=== PATIENT | female | born 1975 | race African-American/Black ===

== ENCOUNTER 2018-06-17 14:38 | Observation (INO) | payer OTHER ==
[2018-06-17 14:44] VITALS: BMI 31.9
[2018-06-17] MEDS ORDERED: KETOROLAC TROMETHAMINE 30 MG/1 ML VIAL IVPUSH ONE (15:57)
[2018-06-17] MEDS ORDERED: KETOROLAC TROMETHAMINE 30 MG/1 ML VIAL ONE (16:11)
[2018-06-17 16:18] LABS: EOS % 1.9 % (0-4.5); HEMATOCRIT 38.4 % (32.4-45.2); HEMOGLOBIN 13.2 GM/dL (10.7-15.3); LYMPH % 35.9 % (8-40); MCH 29.8 pg (25.7-33.7); MCHC 34.3 g/dl (32.0-36.0); MEAN CELL VOLUME 86.8 fl (80-96); MONO % 6.8 % (3.8-10.2); NEUT % 54.4 % (42.8-82.8); PLATELET COUNT 345 K/MM3 (134-434); RBC 4.43 M/mm3 (3.60-5.2); RDW 14.1 % (11.6-15.6)
--- NOTE | 2018-06-17 16:20 | PDOC ---
Rapid Medical Evaluation Chief Complaint: Chest Pain Time Seen by Provider: 06/17/18 15:56 Medical Evaluation: Allergies Allergy/AdvReac Type Severity Reaction Status Date / Time No Known Allergies Allergy Verified 06/17/18 14:41 Vital Signs Temp Pulse Resp BP Pulse Ox 97.7 F 80 18 173/106 H 100 06/17/18 14:43 06/17/18 14:43 06/17/18 14:43 06/17/18 14:43 06/17/18 14:43 06/17/18 16:20 pt c/o: rt sided cp x 1 week worse w/ movement and deep breathing,. pt states aching pain is deep in " the chest" Pt on brief exam: no reprod cp, no lle edema, elevated BP Pt ordered for: labs, cxr, ua, ekg Pt to proceed to the ED Discharge Disposition - Diagnosis Chest pain - Discharge Dispostion Last Admission D/C Date: 12/04/10 - Referrals - Patient Instructions - Post Discharge Activity
--- NOTE | 2018-06-17 16:34 | PDOC ---
History of Present Illness - General Chief Complaint: Chest Pain Stated Complaint: CHEST PAIN, SOB Time Seen by Provider: 06/17/18 15:56 - History of Present Illness Initial Comments: 06/17/18 16:33 42 year old woman with intermittent R chest pain worse with movement of the R arm ongoing for 1 week and worse of 2 days. pressure like rated 8/10, resolved at bedside non radiating 06/17/18 17:08 Past History - Past Medical History Allergies/Adverse Reactions: Allergies Allergy/AdvReac Type Severity Reaction Status Date / Time No Known Allergies Allergy Verified 06/17/18 14:41 Home Medications: Ambulatory Orders NK [No Known Home Medication] 06/17/18 COPD: No - Suicide/Smoking/Psychosocial Hx Smoking Status: No Smoking History: Never smoked Number of Cigarettes Smoked Daily: 0 *Physical Exam - Vital Signs Last Vital Signs Temp Pulse Resp BP Pulse Ox 97.7 F 80 18 173/106 H 100 06/17/18 14:43 06/17/18 14:43 06/17/18 14:43 06/17/18 14:43 06/17/18 14:43 Moderate Sedation - Procedure Monitoring Vital Signs: Procedure Monitoring Vital Signs Temperature 97.7 F 06/17/18 14:43 Pulse Rate 80 06/17/18 14:43 Respiratory Rate 18 06/17/18 14:43 Blood Pressure 173/106 H 06/17/18 14:43 O2 Sat by Pulse Oximetry (%) 100 06/17/18 14:43 ED Treatment Course - LABORATORY CBC & Chemistry Diagram: 06/17/18 16:05 06/17/18 16:55 Medical Decision Making - Medical Decision Making 06/17/18 18:33 ED Course: CBC unremarkable cmp pending EKDL new t wave inversions in V4-V6, however last ekg 8 years ago CXR: unremarkable 06/17/18 18:56 K 2.5 IV and PO repletion 2gm Mg trop .06 will repeat in 3 hours. 06/17/18 19:04 ua: unremarkable *DC/Admit/Observation/Transfer Diagnosis at time of Disposition: Chest pain - Discharge Dispostion Decision to Admit order: Yes - Referrals - Patient Instructions - Post Discharge Activity
--- NOTE | 2018-06-17 17:10 | PDOC ---
Attending Attestation - HPI HPI: 06/17/18 17:51 The patient is a 42 year old female, with no significant PMH, who presents to the emergency department with 2 days of intermittent right sided chest pain. The patient states she only experiences the right sided chest pain when she moves her right arm. The patient states she has not had the chest pain for the past 2 hours. The patient states she has experienced the right sided chest pain in the past which lasted for a couple of days and resolved on its own. The patient denies any recent injuries or trauma. Denies any recent travel or immobilizations. Denies any sick contacts. Denies any cough or hemoptysis. Denies control use. The patient denies palpitations, shortness of breath, headache and dizziness. Denies fever, chills, nausea, vomit, diarrhea and constipation. Denies dysuria, frequency, urgency and hematuria. Allergies: NKA Documentation prepared by Max Fabian, acting as phlebotomist medical lab assistant for Africa Coe MD. <Max Fabian - Last Filed: 06/17/18 17:51> - Resident Resident Name: Anna Flores - ED Attending Attestation I have performed the following: I have examined & evaluated the patient, The case was reviewed & discussed with the resident, I agree w/resident's findings & plan, Exceptions are as noted - Physicial Exam PE: 06/17/18 17:10 GENERAL: The patient is in no acute distress. HEAD: Normal EYES: PERRLA, EOMI, sclera anicteric, conjunctiva clear. ENT: Ears normal, nares patent, oropharynx clear without exudates. Moist mucous membranes. NECK: Normal range of motion, supple LUNGS: Breath sounds equal, clear to auscultation bilaterally. No wheezes, and no crackles. HEART:Regular rate and rhythm, normal S1 and S2 without murmur, rub or gallop. ABDOMEN: Soft, nontender, normoactive bowel sounds. No guarding, no rebound. EXTREMITIES: Normal range of motion, no edema. NEUROLOGICAL: Cranial nerves II through XII grossly intact. Normal speech. No focal neurological deficits. SKIN: Warm, Dry, normal turgor, no rashes or lesions noted. 06/17/18 17:56 - Medical Decision Making 06/17/18 17:57 42 yo F presenting with a complaint of chest pain Present for 2 days Low risk wells, PERC negative Pt has no risk factors for ACS Will do: Labs EKG CXR Repeat trop possible d/c Laboratory Tests 06/17/18 16:05 WBC 5.0 Hgb 13.2 Hct 38.4 Plt Count 345 D 06/17/18 18:42 Laboratory Tests 06/17/18 16:55 Sodium 145 Chloride 104 Carbon Dioxide 32 BUN 14 Creatinine 0.9 Troponin I 0.06 H Potassium - 2.5 06/17/18 18:[address] on observation <Africa Coe - Last Filed: 06/17/18 18:47>
[2018-06-17 18:34] LABS: ALBUMIN 4.1 g/dl (3.4-5.0); ALK PHOS 65 U/L (45-117); ANION GAP 8 MMOL/L (8-16); BILIRUBIN,TOTAL 1.3 mg/dL (0.2-1); BLOOD UREA NITROGEN 14 mg/dL (7-18); CALCIUM 8.8 mg/dL (8.5-10.1); CHLORIDE 104 mmol/L (98-107); CO2 32 mmol/L (21-32); CREATININE 0.9 mg/dL (0.55-1.3); GLUCOSE,RANDOM 78 mg/dL (74-106); SGOT/AST 19 U/L (15-37); SGPT/ALT 21 U/L (13-61); SODIUM 145 mmol/L (136-145); TOT PROT 7.3 g/dl (6.4-8.2)
[2018-06-17 18:41] LABS: URINE APPEARANCE CLEAR; URINE BILIRUBIN NEGATIVE (<2.0 mg/dL); URINE COLOR YELLOW; URINE GLUCOSE (UA) NEGATIVE (NEGATIVE); URINE KETONE NEGATIVE (NEGATIVE); URINE LEUK ESTERASE NEGATIVE (NEGATIVE); URINE NITRITE NEGATIVE (NEGATIVE); URINE PROTEIN NEGATIVE (NEGATIVE); URINE UROBILINOGEN NEGATIVE mg/dL (0.2-1.0)
[2018-06-17 18:43] LABS: POTASSIUM 2.5 mmol/L (3.5-5.1)
[2018-06-17 18:43] LABS: HCG,QUALITATIVE URINE Negative
[2018-06-17] MEDS ORDERED: POTASSIUM CHLORIDE TABS 20 MEQ TABLET.ER (FP) PO ONE (18:43)
[2018-06-17] MEDS ORDERED: POTASSIUM CHLORIDE TABS 10 MEQ TABLET.ER (FP) ONE (19:13)
[2018-06-17] MEDS ORDERED: KCL 10 MEQ IVPB 10 MEQ/100 ML INFUS.BAG IVPB ONE ×2 (19:13→22:22)
[2018-06-17] MEDS ORDERED: MAGNESIUM SULF 50% (8.12 MEQ/2 ML-1 GM VIAL) IVPB ONE (19:18)
[2018-06-17] MEDS: KCL 10 MEQ IVPB 10 MEQ/100 ML INFUS.BAG IVPB SCH ×3 (19:25→22:28)
[2018-06-17] MEDS ORDERED: ASPIRIN 325 MG ENTERIC COATED TABLET (FP) PO ONE (19:38)
[2018-06-17] MEDS ORDERED: metoPROLOL SUCCINATE 25 MG TAB.SR.24H (FP) PO ONE (19:38)
[2018-06-17] MEDS ORDERED: ENOXAPARIN NA (PORCINE) 100 MG/1 ML DISP.SYRIN SQ ONE ×2 (19:38→19:55)
--- NOTE | 2018-06-17 19:49 | PDOC ---
*Physical Exam - Vital Signs Last Vital Signs Temp Pulse Resp BP Pulse Ox 98.1 F 69 18 160/98 98 06/17/18 18:03 06/17/18 18:03 06/17/18 18:03 06/17/18 18:03 06/17/18 18:03 ED Treatment Course - LABORATORY CBC & Chemistry Diagram: 06/17/18 16:05 06/18/18 01:39 - ADDITIONAL ORDERS Additional order review: Laboratory Results 06/17/18 06/17/18 06/17/18 18:19 16:55 16:05 Sodium 145 Cancelled Potassium 2.5 L* Cancelled Chloride 104 Cancelled Carbon Dioxide 32 Cancelled Anion Gap 8 Cancelled BUN 14 Cancelled Creatinine 0.9 Cancelled Creat Clearance w eGFR > 60 Cancelled Random Glucose 78 Cancelled Calcium 8.8 Cancelled Magnesium Cancelled Total Bilirubin 1.3 H Cancelled AST 19 Cancelled ALT 21 Cancelled Alkaline Phosphatase 65 Cancelled Creatine Kinase Cancelled Troponin I 0.06 H Cancelled Total Protein 7.3 Cancelled Albumin 4.1 Cancelled TSH 0.62 Cancelled Urine Color Yellow Urine Appearance Clear Urine pH 6.0 Ur Specific [place] 1.019 Urine Protein Negative Urine Glucose (UA) Negative Urine Ketones Negative Urine Blood Negative Urine Nitrite Negative Urine Bilirubin Negative Urine Urobilinogen Negative Ur Leukocyte Esterase Negative Urine HCG, Qual Negative 06/17/18 16:05 RBC 4.43 MCV 86.8 MCHC 34.3 RDW 14.1 MPV 8.0 Neutrophils % 54.4 D Lymphocytes % 35.9 D Monocytes % 6.8 Eosinophils % 1.9 Basophils % 1.0 D - Medications Given in the ED: ED Medications Discontinued Medications Generic Name Dose Route Start Last Admin Trade Name Freq PRN Reason Stop Dose Admin Ketorolac Tromethamine 30 mg 06/17/18 15:57 06/17/18 16:39 Toradol Injection - IVPUSH 06/17/18 15:58 30 mg ONCE ONE Administration Potassium Chloride 40 meq 06/17/18 18:43 06/17/18 19:25 K-Dur - PO 06/17/18 18:44 40 meq ONCE ONE Administration Medical Decision Making - Medical Decision Making 06/17/18 19:48 Pt signed out to me; she has a + trop and chest pain that is ongoing; We will treat with asa, and metoprolol and lovenox (as BUN/Cr are ok) and she will be admitted to the tele unit. She will have a full cardiac enzyme test with the next blood draw. Hospitalist will be notified. 06/18/18 04:14 2nd trop and CPK are normal; pt's original K+ was low at 2.5. She was treated with K+ as well as Mg+, now 3.0 Pt is admitted to the hospitalist for tele unit admission. *DC/Admit/Observation/Transfer Diagnosis at time of Disposition: Chest pain - Referrals - Patient Instructions - Post Discharge Activity
[2018-06-17] MEDS ORDERED: ASPIRIN 325 MG TABLET ONE (19:55)
[2018-06-17] MEDS ORDERED: MAGNESIUM 1GM/D5W - 1 GM/100 ML IVPB IVPB ONE (20:36)
--- NOTE | 2018-06-17 21:12 | HP ---
CHIEF COMPLAINT:Right sided chest pain PCP:Dr. Harrison HISTORY OF PRESENT ILLNESS: Rebecca Bowden is a 42 yr old F, no significant past medical history, pt presented to ED with right sided pressure pain, worsening x 1 week, pt reports pain is usually in the morning when waking, up pain subsides throughout the day, denies left sided chest pain, c/o SOB on exertion that has been going on for some time , pt seen by PCP in [place], was given medication for BP (pt does not recall name) did not return to PCP for follow up. Currently denies chest pain, headache, dizziness. ER course was notable for: (1)K+ 2.5 (2)BP 180/97 (3)EKG new t wave inversions in V4-V6 Recent Travel: PAST MEDICAL HISTORY:no significant medical hx PAST SURGICAL HISTORY:none Social History: Smoking:denies Alcohol:denies Drugs: denies Family History: Allergies No Known Allergies Allergy (Verified 06/17/18 14:41) HOME MEDICATIONS: Home Medications Medication Instructions Recorded NK [No Known Home Medication] 06/17/18 REVIEW OF SYSTEMS CONSTITUTIONAL: Absent: fever, chills, diaphoresis, generalized weakness, malaise, loss of appetite, weight change HEENT: Absent: rhinorrhea, nasal congestion, throat pain, throat swelling, difficulty swallowing, mouth swelling, ear pain, eye pain, visual changes CARDIOVASCULAR: + right sided chest pain, pressure like pain, +SOB on exertion Absent: , syncope, palpitations, irregular heart rate, lightheadedness, peripheral edema RESPIRATORY: Absent: cough, shortness of breath, dyspnea with exertion, orthopnea, wheezing, stridor, hemoptysis GASTROINTESTINAL: Absent: abdominal pain, abdominal distension, nausea, vomiting, diarrhea, constipation, melena, hematochezia GENITOURINARY: Absent: dysuria, frequency, urgency, hesitancy, hematuria, flank pain, genital pain MUSCULOSKELETAL: Absent: myalgia, arthralgia, joint swelling, back pain, neck pain SKIN: Absent: rash, itching, pallor HEMATOLOGIC/IMMUNOLOGIC: Absent: easy bleeding, easy bruising, lymphadenopathy, frequent infections ENDOCRINE: Absent: unexplained weight gain, unexplained weight loss, heat intolerance, cold intolerance NEUROLOGIC: Absent: headache, focal weakness or paresthesias, dizziness, unsteady gait, seizure, mental status changes, bladder or bowel incontinence PSYCHIATRIC: Absent: anxiety, depression, suicidal or homicidal ideation, hallucinations. PHYSICAL EXAMINATION Vital Signs - 24 hr 06/17/18 06/17/18 06/17/18 14:43 18:03 19:59 Temperature 97.7 F 98.1 F 98.3 F Pulse Rate 80 Pulse Rate [ 69 73 Right Radial] Respiratory 18 18 17 Rate Blood Pressure 173/106 H Blood Pressure 160/98 180/97 H [Left Arm] O2 Sat by Pulse 100 98 100 Oximetry (%) GENERAL: Awake, alert, and fully oriented, in no acute distress. HEAD: Normal with no signs of trauma. EYES: Pupils equal, round and reactive to light, extraocular movements intact, sclera anicteric, conjunctiva clear. No lid lag. EARS, NOSE, THROAT: Ears normal, nares patent, oropharynx clear without exudates. Moist mucous membranes. NECK: Normal range of motion, supple without lymphadenopathy, JVD, or masses. LUNGS: Breath sounds equal, clear to auscultation bilaterally. No wheezes, and no crackles. No accessory muscle use. HEART: Regular rate and rhythm, normal S1 and S2 without murmur, rub or gallop. ABDOMEN: Soft, nontender, not distended, normoactive bowel sounds, no guarding, no rebound, no masses. No hepatomegaly or splenomegaly. MUSCULOSKELETAL: Normal range of motion at all joints. No bony deformities or tenderness. No CVA tenderness. UPPER EXTREMITIES: 2+ pulses, warm, well-perfused. No cyanosis. No clubbing. No peripheral edema. LOWER EXTREMITIES: 2+ pulses, warm, well-perfused. No calf tenderness. No peripheral edema. NEUROLOGICAL: Cranial nerves II-XII intact. Normal speech. Normal gait. PSYCHIATRIC: Cooperative. Good eye contact. Appropriate mood and affect. SKIN: Warm, dry, normal turgor, no rashes or lesions noted, normal capillary refill. Laboratory Results - last 24 hr 06/17/18 06/17/18 06/17/18 16:05 16:05 16:55 WBC 5.0 RBC 4.43 Hgb 13.2 Hct 38.4 MCV 86.8 MCH 29.8 MCHC 34.3 RDW 14.1 Plt Count 345 D MPV 8.0 Absolute Neuts (auto) 2.7 Neutrophils % 54.4 D Lymphocytes % 35.9 D Monocytes % 6.8 Eosinophils % 1.9 Basophils % 1.0 D Nucleated RBC % 0 Sodium Cancelled 145 Potassium Cancelled 2.5 L* Chloride Cancelled 104 Carbon Dioxide Cancelled 32 Anion Gap Cancelled 8 BUN Cancelled 14 Creatinine Cancelled 0.9 Creat Clearance w eGFR Cancelled > 60 Random Glucose Cancelled 78 Calcium Cancelled 8.8 Magnesium Cancelled Total Bilirubin Cancelled 1.3 H AST Cancelled 19 ALT Cancelled 21 Alkaline Phosphatase Cancelled 65 Creatine Kinase Cancelled Troponin I Cancelled 0.06 H Total Protein Cancelled 7.3 Albumin Cancelled 4.1 TSH Cancelled 0.62 Urine Color Urine Appearance Urine pH Ur Specific [place] Urine Protein Urine Glucose (UA) Urine Ketones Urine Blood Urine Nitrite Urine Bilirubin Urine Urobilinogen Ur Leukocyte Esterase Urine HCG, Qual 06/17/18 18:19 WBC RBC Hgb Hct MCV MCH MCHC RDW Plt Count MPV Absolute Neuts (auto) Neutrophils % Lymphocytes % Monocytes % Eosinophils % Basophils % Nucleated RBC % Sodium Potassium Chloride Carbon Dioxide Anion Gap BUN Creatinine Creat Clearance w eGFR Random Glucose Calcium Magnesium Total Bilirubin AST ALT Alkaline Phosphatase Creatine Kinase Troponin I Total Protein Albumin TSH Urine Color Yellow Urine Appearance Clear Urine pH 6.0 Ur Specific [place] 1.019 Urine Protein Negative Urine Glucose (UA) Negative Urine Ketones Negative Urine Blood Negative Urine Nitrite Negative Urine Bilirubin Negative Urine Urobilinogen Negative Ur Leukocyte Esterase Negative Urine HCG, Qual Negative ASSESSMENT/PLAN: Rebecca Bowden is a 42 yr old F, no significant medical condition admitted under observation for Admitting Diagnosis Chest pain A/P: #Chest pain #SOB -admit to tele obs -serial trops 1st 0.06 -oxygen prn -given asa, BB -Cardio consult -Echo ordered -lipid panel in AM -EKG new t wave inversions in V4-V6 #HTN -given BB-cont -low sodium diet #Hypokalemia -10 meq kcl x 3 ordered -will repeat Dispo: requires inpatient treatment DVT prophylaxis: Lovenox Full Code Visit type - Emergency Visit Emergency Visit: Yes Care time: The patient presented to the Emergency Department on the above date and was hospitalized for further evaluation of their emergent condition. - New Patient This patient is new to me today: Yes Date on this admission: 06/17/18 - Critical Care Critical Care patient: No
[2018-06-17 23:38] LABS: ALBUMIN 3.8 g/dl (3.4-5.0); ALK PHOS 60 U/L (45-117); ANION GAP 9 MMOL/L (8-16); BILIRUBIN,TOTAL 1.1 mg/dL (0.2-1); BLOOD UREA NITROGEN 15 mg/dL (7-18); CALCIUM 8.5 mg/dL (8.5-10.1); CHLORIDE 106 mmol/L (98-107); CO2 30 mmol/L (21-32); GLUCOSE,RANDOM 81 mg/dL (74-106); SGOT/AST 21 U/L (15-37); SGPT/ALT 21 U/L (13-61); SODIUM 145 mmol/L (136-145); TOT PROT 6.7 g/dl (6.4-8.2)
[2018-06-17 23:40] LABS: POTASSIUM 2.9 mmol/L (3.5-5.1)
[2018-06-17] MEDS ORDERED: POTASSIUM CHLORIDE ORAL LIQUID 20 MEQ/15 ML PO ONE ×2 (23:42→23:52)
[2018-06-18 00:48] LABS: MAGNESIUM 2.1 mg/dL (1.8-2.4)
[2018-06-18 02:13] LABS: ALBUMIN 3.5 g/dl (3.4-5.0); ALK PHOS 59 U/L (45-117); ANION GAP 7 MMOL/L (8-16); BILIRUBIN,TOTAL 1.1 mg/dL (0.2-1); BLOOD UREA NITROGEN 14 mg/dL (7-18); CALCIUM 8.3 mg/dL (8.5-10.1); CHLORIDE 105 mmol/L (98-107); CO2 31 mmol/L (21-32); CREATININE 0.9 mg/dL (0.55-1.3); GLUCOSE,RANDOM 86 mg/dL (74-106); SGOT/AST 15 U/L (15-37); SGPT/ALT 18 U/L (13-61); SODIUM 143 mmol/L (136-145); TOT PROT 6.6 g/dl (6.4-8.2)
[2018-06-18] MEDS ORDERED: POTASSIUM CHLORIDE ORAL LIQUID 20 MEQ/15 ML ONE (05:04)
--- NOTE | 2018-06-18 08:42 | EKG ---
Test Reason : Blood Pressure : / mmHG Vent. Rate : 070 BPM Atrial Rate : 070 BPM P-R Int : 176 ms QRS Dur : 080 ms QT Int : 478 ms P-R-T Axes : 061 018 016 degrees QTc Int : 516 ms NORMAL SINUS RHYTHM POSSIBLE LEFT ATRIAL ENLARGEMENT T WAVE ABNORMALITY, CONSIDER INFERIOR ISCHEMIA PROLONGED QT ABNORMAL ECG WHEN COMPARED WITH ECG OF 03-DEC-2010 14:27, ST NO LONGER ELEVATED IN ANTEROLATERAL LEADS T WAVE INVERSION NOW EVIDENT IN LATERAL LEADS QT HAS LENGTHENED Confirmed by ISABEL VAZQUEZ, JOANNA ([id number]) on 06/18/2018 8:41:52 AM Referred By: Confirmed By:JOANNA HALL MD
[2018-06-18 09:52] LABS: BASO % 1.1 % (0-2.0); EOS % 2.7 % (0-4.5); HEMATOCRIT 37.4 % (32.4-45.2); HEMOGLOBIN 12.7 GM/dL (10.7-15.3); LYMPH % 34.2 % (8-40); MCH 29.6 pg (25.7-33.7); MCHC 34.1 g/dl (32.0-36.0); MEAN CELL VOLUME 86.8 fl (80-96); MEAN PLT VOLUME 8.2 fl (7.5-11.1); MONO % 6.8 % (3.8-10.2); NEUT % 55.2 % (42.8-82.8); PLATELET COUNT 291 K/MM3 (134-434); RDW 13.8 % (11.6-15.6); WHITE BLOOD COUNT 4.6 K/mm3 (4.0-10.0)
[2018-06-18 10:19] LABS: ALBUMIN 3.6 g/dl (3.4-5.0); ALK PHOS 59 U/L (45-117); ANION GAP 7 MMOL/L (8-16); BILIRUBIN,TOTAL 1.2 mg/dL (0.2-1); BLOOD UREA NITROGEN 13 mg/dL (7-18); CALCIUM 8.8 mg/dL (8.5-10.1); CHLORIDE 106 mmol/L (98-107); CHOLESTEROL 208 mg/dL (50-200); CO2 30 mmol/L (21-32); CREATININE 0.9 mg/dL (0.55-1.3); GLUCOSE,RANDOM 115 mg/dL (74-106); HDL CHOLESTEROL 57 mg/dL (40-60); MAGNESIUM 2.3 mg/dL (1.8-2.4); SGOT/AST 18 U/L (15-37); SGPT/ALT 20 U/L (13-61); SODIUM 143 mmol/L (136-145); TOT PROT 6.5 g/dl (6.4-8.2); TRIGLYCERIDES 151 mg/dL (0-150)
[2018-06-18] MEDS ORDERED: POTASSIUM CHLORIDE TABS 20 MEQ TABLET.ER (FP) PO ONE (12:59)
--- NOTE | 2018-06-18 12:59 | PN ---
Progress Note, Physician - Objective Vital Signs: Vital Signs Temperature 98.0 F 06/18/18 06:37 Pulse Rate 75 06/18/18 06:37 Respiratory Rate 19 06/18/18 06:37 Blood Pressure 149/90 06/18/18 06:37 O2 Sat by Pulse Oximetry (%) 98 06/18/18 06:37 Cardiovascular: Yes: Regular Rate and Rhythm Respiratory: Yes: Regular, CTA Bilaterally Gastrointestinal: Yes: Normal Bowel Sounds, Soft Labs: CBC, BMP 06/18/18 09:30 06/18/18 09:30 Problem List - Problems (1) Hypokalemia Assessment/Plan: -Replace and monitor Code(s): E87.6 - HYPOKALEMIA (2) Abnormal EKG Assessment/Plan: --R/o Ischemia --CE trending to kelly --repeat ekg--if QT interval ok start on Lopressor --Cardiology Code(s): R94.31 - ABNORMAL ELECTROCARDIOGRAM [ECG] [EKG] (3) Troponin I above reference range Code(s): R74.8 - ABNORMAL LEVELS OF OTHER SERUM ENZYMES (4) Chest pain Assessment/Plan: -Cardiology -Tele -Stress test and Echo -Statin -ASA Code(s): R07.9 - CHEST PAIN, UNSPECIFIED
[2018-06-18] MEDS ORDERED: ATORVASTATIN CA 20 MG TABLET (FP) PO ONE (13:00)
[2018-06-18] MEDS ORDERED: METOPROLOL TARTRATE 25 MG TABLET (FP) PO SCH (13:15)
[2018-06-18] MEDS: ASPIRIN COATED 81 MG TABLET.EC PO SCH (15:12)
--- NOTE | 2018-06-18 15:50 | CON.CARD ---
Consult Consult Specialty:: Cardiology Referred by:: Dr. Diggs Reason for Consultation:: chest pain - History of Present Illness Chief Complaint: chest pain History of Present Illness: 42 year old woman with no known pmh admitted with R sided chest pressure on and off for the past few days. Pt seen and examined in the ER in [place]. denies current chest pain, states it resolved since coming to ER. states the pain is right sided, pressure like, not associated with exertion, occurs randomnly on and off throughout the day usually in the morning. she admits to sob when she has the chest pain but not all the time. denies palpitations, pnd, orthopnea, or LE edema. no lightheadedness, dizziness , syncope, or near syncope. pt found to have hypokalemia, trop .06 then .05 with normal CK level, abnl ekg. - History Source History Provided By: Patient, Medical Record Limitations to Obtaining History: No Limitations - Smoking History Smoking history: Never smoked Aproximately how many cigarettes per day: 0 - Social History Usual Living Arrangement: Alone ADL: Independent History of Recent Travel: Yes Home Medications - Allergies Allergies/Adverse Reactions: Allergies Allergy/AdvReac Type Severity Reaction Status Date / Time No Known Allergies Allergy Verified 06/17/18 14:41 - Home Medications Home Medications: Ambulatory Orders NK [No Known Home Medication] 06/17/18 Family Disease History - Family Disease History Family History: Denies Review of Systems - Review of Systems Constitutional: denies: No Symptoms, Chills, Diaphoresis, Fever, Lethargy, Loss of Appetite, Malaise, Night Sweats, Unintentional Wgt. Loss, Weakness, Other Eyes: denies: No Symptoms, Blind Spots, Blurred Vision, Double Vision, Eye Pain , Floaters, Photophobia, Recent Change in Vision, Other HENT: denies: No Symptoms, Difficult Swallowing, Ear Discharge, Ear Pain, Epistaxis, Gingival Bleeding, Hearing Loss, Mouth Swelling, Nasal Congestion, Ocular Prosthesis, Throat Pain, Toothache, Ringing in Ears, Other Neck: denies: No Symptoms, Decreased ROM, Lumps, Pain on Movement, Stiffness, Swollen Glands, Tenderness, Other Cardiovascular: reports: Chest Pain, Shortness of Breath. denies: No Symptoms, Edema, Palpitations, Other Respiratory: reports: SOB. denies: No Symptoms, Cough, Exercise Intolerance, Hemoptysis, Orthopnea, PND, Snoring, SOB on Exertion, Wheezing, Other Gastrointestinal: denies: No Symptoms, Abdominal Pain, Bloating, Constipation, Diarrhea, Dysphagia, Indigestion, Melena, Nausea, Rectal Bleeding, Vomiting, Vomiting Blood, Other Genitourinary: denies: No Symptoms, Burning, Discharge, Dysuria, Flank Pain, Frequency, Hematuria, Incontinence, Lesions, Menses, Pain, Testicular Mass, Testicular Pain, Testicular Swelling, Urgency, Vaginal Bleeding, Other Breasts: denies: No Symptoms Reported, See HPI, Breast Implants, Discharge from Nipple, Lumps, Pain, Skin Changes, Other Musculoskeletal: denies: No Symptoms, Back Pain, Crepitus, Decreased ROM, Extremity Pain, Joint Pain, Joint Swelling, Muscle Pain, Muscle Cramps, Muscle Weakness, Other Integumentary: denies: No Symptoms, Blister, Bruising, Change in Color, Eczema, Erythema, Incision, Lesions, Lump, Pallor, Pruritis, Rash, Wound, Other Neurological: denies: No Symptoms, Change in LOC, Change in Speech, Confusion, Dizziness, Headache, Incoordination, Numbness, Parasthesia, Pre-Existing Deficit , Seizure, Syncope, Tremors, Unsteady Gait, Weakness, Other Endocrine: denies: No Symptoms, Excessive Sweating, Flushing, Increased Hunger, Increased Thirst, Intolerance to Cold, Intolerance to Heat, Unexplained Weight Gain, Unexplained Weight Loss, Other Hematology/Lymphatic: denies: No Symptoms, Easily Bruised, Excessive Bleeding, Swollen Glands, Other Psychiatric: denies: No Symptoms, Altered Sleep Pattern, Anxiety, Depression, Hallucinations, Panic, Paranoia, Suicidal, Other Vital Signs: Vital Signs Temperature 98.0 F 06/18/18 06:37 Pulse Rate 75 06/18/18 06:37 Respiratory Rate 19 06/18/18 06:37 Blood Pressure 149/90 06/18/18 06:37 O2 Sat by Pulse Oximetry (%) 98 06/18/18 06:37 Constitutional: Yes: No Distress, Calm Eyes: Yes: Conjunctiva Clear, EOM Intact, PERRL HENT: Yes: Atraumatic, Normocephalic Neck: Yes: Supple, Trachea Midline Respiratory: Yes: Regular, CTA Bilaterally. No: Rales, Rhonchi, Wheezes Gastrointestinal: Yes: Normal Bowel Sounds, Soft. No: Distention, Tenderness Cardiovascular: Yes: Regular Rate and Rhythm. No: Bradycardia, Tachycardia, Pulse Irregular, Gallop, Rub, Varicosities JVD: No Carotid Bruit: No PMI: Non-Displaced Heart Sounds: Yes: S1, S2. No: Split S2, S3, S4, Clicks, Gallop, Rub, Bruit Murmur: No: Systolic Murmur, Diastolic Murmur Musculoskeletal: Yes: WNL Extremities: Yes: WNL Edema: No Peripheral Pulses WNL: Yes Peripheral Pulses: 2+ Left Doralis Pedis, 2+ Right Dorsalis Pedis Neurological: Yes: Alert, Oriented Psychiatric: Yes: Alert, Oriented - Other Data Labs, Other Data: CBC, BMP 06/18/18 09:30 06/18/18 09:30 Troponin, BNP 06/17/18 06/17/18 06/17/18 16:05 16:55 20:30 Troponin I Cancelled 0.06 H 0.05 Troponin, BNP 06/17/18 06/17/18 06/17/18 16:05 16:55 20:30 Troponin I Cancelled 0.06 H 0.05 nsr 70bpm, T inversions inferior and lateral leads, possible ischemia Imaging - Results Chest X-ray: Report Reviewed, Image Reviewed EKG: Report Reviewed, Image Reviewed Other: Report Reviewed, Image Reviewed Assessment/Plan 42 year old woman with no known pmh admitted with R sided chest pressure on and off for the past few days. Pt seen and examined in the ER in [place]. denies current chest pain, states it resolved since coming to ER. states the pain is right sided, pressure like, not associated with exertion, occurs randomnly on and off throughout the day usually in the morning. she admits to sob when she has the chest pain but not all the time. denies palpitations, pnd, orthopnea, or LE edema. no lightheadedness, dizziness , syncope, or near syncope. pt found to have hypokalemia, trop .06 then .05 with normal CK level, abnl ekg. Chest pain-atypical -1st trop minimally elevated, 2nd trop nl with normal CK -unlikely acs -chest pain resolved -ekg abnl -chest pain is atypical -trend serial cardiac enzymes and ekgs -will plan for echo and stress test -if chest pain recurs consider alternative etiologies and consider evaluation for PE -cont ASA, statin -start bblocker correct hypokalemia
[2018-06-18] MEDS ORDERED: METOPROLOL TARTRATE 25 MG TABLET (FP) ONE (17:58)
[2018-06-18] MEDS ORDERED: NIFEdipine E.R. 30 MG TABLET (FP) ONE (17:59)
[2018-06-18] MEDS ORDERED: METOPROLOL TARTRATE 25 MG TABLET (FP) PO ONE (18:00)
[2018-06-18] MEDS ORDERED: NIFEdipine E.R. 30 MG TABLET (FP) PO ONE (18:00)
[2018-06-19] MEDS ORDERED: ATORVASTATIN CA 10 MG TABLET (FP) ONE (00:25)
[2018-06-19] MEDS: ATORVASTATIN CA 20 MG TABLET (FP) PO SCH ×2 (00:33→21:39)
--- NOTE | 2018-06-19 08:40 | EKG ---
Test Reason : Blood Pressure : / mmHG Vent. Rate : 065 BPM Atrial Rate : 065 BPM P-R Int : 176 ms QRS Dur : 092 ms QT Int : 432 ms P-R-T Axes : 057 010 016 degrees QTc Int : 449 ms NORMAL SINUS RHYTHM NONSPECIFIC ST AND T WAVE ABNORMALITY ABNORMAL ECG WHEN COMPARED WITH ECG OF 17-JUN-2018 14:45, QT HAS SHORTENED Confirmed by ISABEL VAZQUEZ, JOANNA ([id number]) on 06/19/2018 8:40:33 AM Referred By: Anderson ADHIKARI Confirmed By:JOANNA HALL MD
[2018-06-19] MEDS: ASPIRIN COATED 81 MG TABLET.EC PO SCH (09:40)
[2018-06-19] MEDS: METOPROLOL TARTRATE 25 MG TABLET (FP) PO SCH ×2 (09:40→21:39)
[2018-06-19] MEDS ORDERED: NIFEdipine E.R. 30 MG TABLET (FP) PO SCH (10:00)
--- NOTE | 2018-06-19 10:34 | CONSULT ---
Consult - text type - Consultation Consultation Note: Renal Consult for Hypokalemia This is a 42 year old woman with no signficant PMhx of presented with right sided chest pain and to have persistent hypokalemia. Chest pain is now resolved. Has a slight KUHN. Was told in the past that her K was low. Denies use of any diuretics. Deneis any OTC meds live laxatives. No diarrhea noted. Has known she had high BP for ~ 1 year, not on meds. Denies any CP, SOB, Fever, chills, N/V/D. Denies any arm or leg weakness. PMhx: as above Allergies: NKDA Family Hx: NC Social Hx: No T/A/D ROS: as per HPI Home Medications Medication Instructions Recorded NK [No Known Home Medication] 06/17/18 Vital Signs Temperature 98.1 F 06/18/18 23:40 Pulse Rate 85 06/18/18 23:40 Respiratory Rate 18 06/18/18 23:40 Blood Pressure 154/97 06/18/18 23:40 O2 Sat by Pulse Oximetry (%) 100 06/18/18 23:40 Intake & Output 06/16/18 06/17/18 06/18/18 06/19/18 23:59 23:59 23:59 23:59 Intake Total 1200 Balance 1200 Weight 95.254 kg NAD awake and alert neck supple RRR CTA soft NT/ND no LE edema CBC, BMP 06/18/18 09:30 06/18/18 09:30 Current Medications Aspirin (Ecotrin -) 81 mg PO DAILY [facility] Last Admin: 06/19/18 09:40 Dose: 81 mg Atorvastatin Calcium (Lipitor -) 20 mg PO HS [facility] Last Admin: 06/19/18 00:33 Dose: 20 mg Metoprolol Tartrate (Lopressor -) 25 mg PO BID [facility] Last Admin: 06/19/18 09:40 Dose: 25 mg Nifedipine (Procardia Xl -) 30 mg PO DAILY [facility] Last Admin: 06/19/18 09:40 Dose: 30 mg 42 year old woman with no signficant PMhx of presented with right sided chest pain and to have persistent hypokalemia. Chest pain is now resolved. Has a slight KUHN. #Hypokalemia #Hypertension #Chest pain r/o ACS vs. PE #Hyperlipidemia Differential for hypokalemia includes primary hyperaldosteronism, renal artery stenosis, liddles syndrome Check renin/aldosterone levels will give kcl 40meq x 1 and then start 1/2 NS with 20 meq of kcl as pt with contrast exposure Cardiology following Can consider change of antihypertensive to MARLEEN/ARB if ok with cardiology on statin for HLD Repeat BMP this afternoon Thank you Will follow Viktor Bergman DO
[2018-06-19] MEDS ORDERED: POTASSIUM CHLORIDE ORAL LIQUID 20 MEQ/15 ML PO ONE (10:47)
--- NOTE | 2018-06-19 11:27 | PN ---
Progress Note, Physician - Current Medication List Current Medications: Active Medications Aspirin (Ecotrin -) 81 mg PO DAILY [facility] Last Admin: 06/19/18 09:40 Dose: 81 mg Atorvastatin Calcium (Lipitor -) 20 mg PO HS [facility] Last Admin: 06/19/18 00:33 Dose: 20 mg Potassium Chloride/Sodium Chloride (1/2ns+20meq Kcl) 20 meq in 1,000 mls @ 75 mls/hr IV ASDIR [facility] Metoprolol Tartrate (Lopressor -) 25 mg PO BID [facility] Last Admin: 06/19/18 09:40 Dose: 25 mg Nifedipine (Procardia Xl -) 30 mg PO DAILY [facility] Last Admin: 06/19/18 09:40 Dose: 30 mg - Objective Vital Signs: Vital Signs Temperature 98.1 F 06/18/18 23:40 Pulse Rate 85 06/18/18 23:40 Respiratory Rate 18 06/18/18 23:40 Blood Pressure 154/97 06/18/18 23:40 O2 Sat by Pulse Oximetry (%) 100 06/18/18 23:40 Cardiovascular: Yes: Regular Rate and Rhythm Respiratory: Yes: Regular, CTA Bilaterally Gastrointestinal: Yes: Normal Bowel Sounds, Soft Labs: CBC, BMP 06/18/18 09:30 06/18/18 09:30 Problem List - Problems (1) Hypokalemia Assessment/Plan: -Replace and monitor -Renal consult Code(s): E87.6 - HYPOKALEMIA (2) Abnormal EKG Assessment/Plan: --R/o Ischemia --CE trending to normal --repeat ekg--if QT interval less --Cardiology noted Code(s): R94.31 - ABNORMAL ELECTROCARDIOGRAM [ECG] [EKG] (3) Troponin I above reference range Assessment/Plan: -as above Code(s): R74.8 - ABNORMAL LEVELS OF OTHER SERUM ENZYMES (4) Chest pain Assessment/Plan: -Cardiology -TeleCta negative pe--dilated aortic root -Stress test and Echo -Statin -ASA Code(s): R07.9 - CHEST PAIN, UNSPECIFIED (5) Dilated aortic root Assessment/Plan: -Echo -Monitor bp Code(s): I77.810 - THORACIC AORTIC ECTASIA (6) HTN (hypertension) Assessment/Plan: -Increase procardia to 60 -Metoprolol Code(s): I10 - ESSENTIAL (PRIMARY) HYPERTENSION (7) HLD (hyperlipidemia) Assessment/Plan: -ON statin Code(s): E78.5 - HYPERLIPIDEMIA, UNSPECIFIED
[2018-06-19] MEDS ORDERED: NIFEdipine E.R 60 MG TABLET (UD) PO SCH (11:28)
[2018-06-19] MEDS ORDERED: POTASSIUM CHLORIDE TABS 20 MEQ TABLET.ER (FP) PO ONE (12:37)
[2018-06-19] MEDS: SODIUM CHLORIDE 0.45%/POT 20 MEQ/1,000 ML INFUS.BAG IV SCH ×2 (12:58→18:10)
--- NOTE | 2018-06-19 16:04 | PN ---
Progress Note, Physician History of Present Illness: seen and examined today in [facility]. no overnight events. no new complaints. no further chest pain. - Current Medication List Current Medications: Active Medications Aspirin (Ecotrin -) 81 mg PO DAILY [facility] Last Admin: 06/19/18 09:40 Dose: 81 mg Atorvastatin Calcium (Lipitor -) 20 mg PO HS [facility] Last Admin: 06/19/18 00:33 Dose: 20 mg Potassium Chloride/Sodium Chloride (1/2ns+20meq Kcl) 20 meq in 1,000 mls @ 75 mls/hr IV ASDIR [facility] Last Admin: 06/19/18 12:58 Dose: 75 mls/hr Metoprolol Tartrate (Lopressor -) 25 mg PO BID [facility] Last Admin: 06/19/18 09:40 Dose: 25 mg Nifedipine (Procardia Xl -) 60 mg PO DAILY [facility] - Objective Vital Signs: Vital Signs Temperature 97.8 F 06/19/18 15:33 Pulse Rate 67 06/19/18 15:33 Respiratory Rate 18 06/19/18 15:33 Blood Pressure 144/82 06/19/18 15:33 O2 Sat by Pulse Oximetry (%) 97 06/19/18 15:33 Constitutional: Yes: No Distress, Calm Eyes: Yes: Conjunctiva Clear, EOM Intact, PERRL HENT: Yes: Atraumatic, Normocephalic Neck: Yes: Supple, Trachea Midline Cardiovascular: Yes: Regular Rate and Rhythm, S2. No: Bradycardia, Tachycardia , Pulse Irregular, Bruit, JVD, Gallop, Murmur, Rub, S3, S4, Varicosities Respiratory: Yes: Regular, CTA Bilaterally. No: Rales, Rhonchi, Wheezes Gastrointestinal: Yes: Normal Bowel Sounds, Soft. No: Distention, Tenderness Breast(s): Yes: WNL Musculoskeletal: Yes: WNL Extremities: Yes: WNL Edema: No Peripheral Pulses WNL: Yes Peripheral Pulses: Left Doralis Pedis: 2+, Right Dorsalis Pedis: 2+ Neurological: Yes: Alert, Oriented Psychiatric: Yes: Alert, Oriented Labs: CBC, BMP 06/18/18 09:30 06/18/18 09:30 - ....Imaging Chest X-ray: Report Reviewed, Image Reviewed EKG: Report Reviewed, Image Reviewed Other: Report Reviewed, Image Reviewed Assessment/Plan 42 year old woman with no known pmh admitted with R sided chest pressure on and off for the past few days. Pt seen and examined in the ER in [place]. denies current chest pain, states it resolved since coming to ER. states the pain is right sided, pressure like, not associated with exertion, occurs randomnly on and off throughout the day usually in the morning. she admits to sob when she has the chest pain but not all the time. denies palpitations, pnd, orthopnea, or LE edema. no lightheadedness, dizziness , syncope, or near syncope. pt found to have hypokalemia, trop .06 then .05 with normal CK level, abnl ekg. Chest pain-atypical -1st trop minimally elevated, 2nd trop nl with normal CK -unlikely acs -chest pain resolved -ekg abnl -chest pain is atypical -trend serial cardiac enzymes and ekgs -will plan for echo and stress test -CTA chest showed no PE -cont ASA, statin -start bblocker HTN -ok to add MARLEEN-I/ARB -if stress test shows no ischemia and echo wnl can stop metoprolol and titrate the MARLEEN-I/ARB
[2018-06-19 16:41] LABS: ALBUMIN 3.8 g/dl (3.4-5.0); ALK PHOS 61 U/L (45-117); ANION GAP 7 MMOL/L (8-16); BILIRUBIN,TOTAL 0.8 mg/dL (0.2-1); BLOOD UREA NITROGEN 15 mg/dL (7-18); CALCIUM 8.9 mg/dL (8.5-10.1); CHLORIDE 103 mmol/L (98-107); CO2 31 mmol/L (21-32); CREATININE 0.9 mg/dL (0.55-1.3); GLUCOSE,RANDOM 87 mg/dL (74-106); MAGNESIUM 2.1 mg/dL (1.8-2.4); POTASSIUM 3.1 mmol/L (3.5-5.1); SGOT/AST 17 U/L (15-37); SGPT/ALT 23 U/L (13-61); SODIUM 141 mmol/L (136-145)
[2018-06-19] MEDS: POTASSIUM CHLORIDE TABS 20 MEQ TABLET.ER (FP) PO SCH ×2 (21:39→23:39)
[2018-06-20 07:00] LABS: BASO % 0.8 % (0-2.0); EOS % 3.3 % (0-4.5); HEMATOCRIT 38.2 % (32.4-45.2); HEMOGLOBIN 12.2 GM/dL (10.7-15.3); LYMPH % 41.9 % (8-40); MCHC 32.1 g/dl (32.0-36.0); MEAN CELL VOLUME 87.4 fl (80-96); MEAN PLT VOLUME 8.3 fl (7.5-11.1); MONO % 6.8 % (3.8-10.2); NEUT % 47.2 % (42.8-82.8); PLATELET COUNT 309 K/MM3 (134-434); RBC 4.37 M/mm3 (3.60-5.2); RDW 13.9 % (11.6-15.6); WHITE BLOOD COUNT 6.1 K/mm3 (4.0-10.0)
[2018-06-20 07:52] LABS: ALBUMIN 3.5 g/dl (3.4-5.0); ALK PHOS 56 U/L (45-117); ANION GAP 8 MMOL/L (8-16); BILIRUBIN,TOTAL 0.7 mg/dL (0.2-1); BLOOD UREA NITROGEN 13 mg/dL (7-18); CALCIUM 8.4 mg/dL (8.5-10.1); CHLORIDE 104 mmol/L (98-107); CO2 28 mmol/L (21-32); CREATININE 0.8 mg/dL (0.55-1.3); GLUCOSE,RANDOM 94 mg/dL (74-106); MAGNESIUM 1.9 mg/dL (1.8-2.4); POTASSIUM 3.5 mmol/L (3.5-5.1); SGOT/AST 18 U/L (15-37); SGPT/ALT 21 U/L (13-61); SODIUM 140 mmol/L (136-145); TOT PROT 6.5 g/dl (6.4-8.2)
[2018-06-20] MEDS ORDERED: POTASSIUM CHLORIDE TABS 20 MEQ TABLET.ER (FP) PO SCH (10:00)
[2018-06-20] MEDS ORDERED: NIFEdipine E.R 60 MG TABLET (UD) PO SCH (10:00)
--- NOTE | 2018-06-20 11:51 | ECHO ---
Name: CARMEN DOE Exam:Adult Echocardiogram Study Date: 06/20/2018 08:21 AM Age: 42 yrs Reason For Study: Chest pain Height: 68 in Weight: 210 lb BSA: 2.1 m2 MMode/2D Measurements & Calculations IVSd: 1.1 cm Ao root diam: 3.1 cm LVIDd: 4.7 cm LA dimension: 3.6 cm LVIDs: 3.2 cm LVPWd: 0.89 cm EDV(Teich): 103.5 ml LVOT diam: 2.0 cm ESV(Teich): 41.3 ml TAPSE: 2.0 cm RV S Qasim: 10.7 cm/sec Doppler Measurements & Calculations MV E max qasim: 73.2 cm/sec Med Peak E' Qasim: 6.2 cm/sec MV A max qasim: 66.5 cm/sec Med E/e': 11.8 MV E/A: 1.1 Lat Peak E' Qasim: 10.7 cm/sec Lat E/e': 6.9 Procedure A complete two-dimensional transthoracic echocardiogram was performed (2D, M-mode, Doppler and color flow Doppler). Technically limited study. Left Ventricle The left ventricle is normal in size. Left ventricular systolic function is normal. Ejection Fraction = 55- 60%. No regional wall motion abnormalities noted. Right Ventricle The right ventricle is normal size. The right ventricular systolic function is normal. RV systolic TD I is 11 cm/s. Atria The left atrial size is normal. Right atrial size is normal. Mitral Valve There is mild mitral annular calcification. There is no mitral regurgitation noted. Tricuspid Valve The tricuspid valve is normal in structure and function. There is mild tricuspid regurgitation. Aortic Valve The aortic valve is normal in structure and function. No aortic regurgitation is present. Pulmonic Valve The pulmonic valve is not well visualized. Trace pulmonic valvular regurgitation. Great Vessels The aortic root is normal size. Pericardium/Pleura There is no pericardial effusion. Interpretation Summary The left ventricle is normal in size. Left ventricular systolic function is normal. No regional wall motion abnormalities noted. Ejection Fraction = 55-60%. The right ventricular systolic function is normal. The left atrial size is normal. Right atrial size is normal. There is mild mitral annular calcification. There is mild tricuspid regurgitation. Trace pulmonic valvular regurgitation. There is no pericardial effusion. Previous study is not available for comparison Hayden Vann MD 06/20/2018 11:51 AM
[2018-06-20] MEDS: METOPROLOL TARTRATE 25 MG TABLET (FP) PO SCH (13:38)
[2018-06-20] MEDS: ASPIRIN COATED 81 MG TABLET.EC PO SCH (13:38)
--- NOTE | 2018-06-20 13:44 | PN ---
Progress Note (short form) - Note Progress Note: Came to see pt, pt is at stress test. Labs reviewed, K is improved start KCL 40meq daily Received ~120meq yesterday can d/c IVF Renin/Adlosterone pending will review CT with radiology to access for any prominence of adrenal glands Viktor Bergman DO
[2018-06-20 14:36] VITALS: BP 114/65; PULSE 70; TEMP 97.8
--- NOTE | 2018-06-20 14:40 | DS ---
Physical Examination Vital Signs: Vital Signs Temperature 98.2 F 06/20/18 06:00 Pulse Rate 68 06/20/18 06:00 Respiratory Rate 20 06/20/18 06:00 Blood Pressure 128/81 06/20/18 06:00 O2 Sat by Pulse Oximetry (%) 99 06/20/18 07:10 Constitutional: Yes: Calm Cardiovascular: Yes: Regular Rate and Rhythm, S1, S2 Respiratory: Yes: CTA Bilaterally Gastrointestinal: Yes: Normal Bowel Sounds, Soft Edema: No Neurological: Yes: Alert, Oriented Labs: CBC, BMP 06/20/18 05:30 06/20/18 05:30 Discharge Summary Reason For Visit: CHEST PAIN ELEVATED TROPONON LEVEL HYPOKALEMIA Current Active Problems Abnormal EKG (Acute) Chest pain (Acute) Dilated aortic root (Acute) HLD (hyperlipidemia) (Acute) HTN (hypertension) (Acute) Hypokalemia (Acute) Troponin I above reference range (Acute) Other Procedures: CTA chest no PE left thyroid nodule. stress test negative. echo normal Hospital Course: CHIEF COMPLAINT:Right sided chest pain PCP:Dr. Harrison HISTORY OF PRESENT ILLNESS: Rebecca Bowden is a 42 yr old F, no significant past medical history, pt presented to ED with right sided pressure pain, worsening x 1 week, pt reports pain is usually in the morning when waking, up pain subsides throughout the day, denies left sided chest pain, c/o SOB on exertion that has been going on for some time , pt seen by PCP in [place], was given medication for BP (pt does not recall name) did not return to PCP for follow up. Currently denies chest pain, headache, dizziness. ER course was notable for: (1)K+ 2.5 (2)BP 180/97 (3)EKG new t wave inversions in V4-V6 telemtery had echo and stress test asa, statin ,stop BB per cardiology given stress test normal and started on potassium replacement FU with PMD for labs and thyroid sonogram to look at nodule - Instructions Diet, Activity, Other Instructions: outpatient thyroid sonogram FU with PMD in one week to labs checked Disposition: HOME - Home Medications Comprehensive Discharge Medication List: Ambulatory Orders NK [No Known Home Medication] 06/17/18
== END 2018-06-20 15:41 | disposition home or self-care (01) ==
LOC: JER 14:38 → JERBED 20:54 → J4W 06-19 15:13
PROVIDERS: ADMIT Internal Medicine; ATTEND Family Medicine
PROC: 3E0333Z Introduction of Anti-inflammatory into Peripheral Vein, Percutaneous Approach (ICD-10-PCS; principal; 2018-06-17)
PROC: 3E033GC Introduction of Other Therapeutic Substance into Peripheral Vein, Percutaneous Approach (ICD-10-PCS; 2018-06-17)
PROC: 3E013GC Introduction of Other Therapeutic Substance into Subcutaneous Tissue, Percutaneous Approach (ICD-10-PCS; 2018-06-17)
DX: R07.89 Other chest pain (principal); R06.02 Shortness of breath; I10 Essential (primary) hypertension; E87.6 Hypokalemia; R94.31 Abnormal electrocardiogram [ECG] [EKG]; R77.8 Other specified abnormalities of plasma proteins; E78.5 Hyperlipidemia, unspecified; I77.810 Thoracic aortic ectasia
CPT/HCPCS: 36415; 71045-TC-FY; 71275-TC; 78452-TC; 80053; 80061; 81003; 82088; 82550; 83721; 83735; 83930; 83935; 84244; 84443; 84484; 84703; 85025; 87086; 93005; 93010; 93017; 93306-TC; 99285-25; A9502; G0378; J3480

== ENCOUNTER 2019-07-26 09:50 | Emergency (ER) | payer OTHER ==
[2019-07-26 10:01] VITALS: PULSE 69; TEMP 98.4; BMI 31.9
[2019-07-26] MEDS ORDERED: KETOROLAC TROMETHAMINE 60 MG/2 ML VIAL IM ONE (10:15)
[2019-07-26] MEDS ORDERED: KETOROLAC TROMETHAMINE 60 MG/2 ML VIAL ONE (10:17)
--- NOTE | 2019-07-26 10:28 | PDOC ---
History of Present Illness - General Chief Complaint: Pain, Acute Stated Complaint: RT LEG PAIN Time Seen by Provider: 07/26/19 10:08 History Source: Patient Past History - Past Medical History Allergies/Adverse Reactions: Allergies Allergy/AdvReac Type Severity Reaction Status Date / Time No Known Allergies Allergy Verified 07/26/19 10:00 Home Medications: Ambulatory Orders Aspirin Coated [Ecotrin -] 81 mg PO DAILY tablet.ec 06/20/18 Atorvastatin Ca [Lipitor] 20 mg PO HS #20 tablet MDD 1 06/20/18 Metoprolol Tartrate [Lopressor -] 25 mg PO BID #20 tablet MDD 2 06/20/18 Nifedipine ER [Procardia XL -] 60 mg PO DAILY #30 tab.er.24 MDD 1 06/20/18 Potassium Chloride [K-Dur -] 40 meq PO DAILY #14 tablet.er MDD 2 06/20/18 Cyclobenzaprine HCl [Flexeril 10 mg] 10 mg PO HS #9 tablet 07/26/19 Ibuprofen [Motrin -] 800 mg PO Q6H #30 tablet 07/26/19 Anemia: No Asthma: No Cancer: No Cardiac Disorders: No CVA: No COPD: No CHF: No Dementia: No Diabetes: No GI Disorders: No Disorders: No HTN: No Hypercholesterolemia: Yes Liver Disease: No Seizures: No Thyroid Disease: No - Surgical History Abdominal Surgery: No Appendectomy: No Cardiac Surgery: No Cholecystectomy: No Lung Surgery: No Neurologic Surgery: No Orthopedic Surgery: No - Psycho Social/Smoking Cessation Hx Smoking Status: No Smoking History: Never smoked Have you smoked in the past 12 months: No Number of Cigarettes Smoked Daily: 0 Hx Alcohol Use: No Drug/Substance Use Hx: No Substance Use Type: None Hx Substance Use Treatment: No *Physical Exam - Vital Signs Last Vital Signs Temp Pulse Resp BP Pulse Ox 98.4 F 69 16 187/105 H 98 07/26/19 09:57 07/26/19 09:57 07/26/19 09:57 07/26/19 09:57 07/26/19 09:57 Medical Decision Making - Medical Decision Making 07/26/19 10:13 44-year-old female, history of hypertension but taken off meds as blood pressure had improved per patient, here with right lower back pain radiating to right thigh x3 days, sharp, constant, 8 out of 10, worse with movement. No trauma. Has not tried anything for pain. No lower extremity weakness, sensory changes, incontinence or saddle anesthesia. No history of similar pain. Denies any acute symptoms nausea vomiting fever or chills see exam M/l MSK back pain BP sig elevated but no concern for dissection at this time -pain control in ED and reassess Elevated BP Asx from BP standpoint Reports history of hypertension but states he was taken off medications remotely -Repeat BP s/p pain control -anticipate dc w/ PMD f/u for further evaluation and management of her blood pressure 07/26/19 11:05 Rpt blood pressure 160/101. Patient remains asymptomatic from a BP standpoint. Reports that her back pain is much better with meds. Dc with pain control and to follow-up with with PMD this week Discharge - Discharge Information Problems reviewed: Yes Clinical Impression/Diagnosis: Elevated blood pressure reading Low back pain Qualifiers: Chronicity: acute Back pain laterality: right Sciatica presence: without sciatica Qualified Code(s): M54.5 - Low back pain Condition: Improved Disposition: HOME - Additional Discharge Information Prescriptions: Cyclobenzaprine HCl [Flexeril 10 mg] 10 mg PO HS #9 tablet Ibuprofen [Motrin -] 800 mg PO Q6H #30 tablet - Follow up/Referral - Patient Discharge Instructions Patient Printed Discharge Instructions: DI for Low Back Pain Additional Instructions: Take Medication as directed for back pain Your blood pressure was elevated here and you need to follow-up with your PMD this week to most likely restart medication - Post Discharge Activity
[2019-07-26 11:07] VITALS: BP 160/101
== END 2019-07-26 11:08 | disposition home or self-care (01) ==
LOC: JERFT 09:50
PROC: 3E0233Z Introduction of Anti-inflammatory into Muscle, Percutaneous Approach (ICD-10-PCS; principal; 2019-07-26)
DX: M54.5 Low back pain (principal); I10 Essential (primary) hypertension
CPT/HCPCS: 99284-25